=== PATIENT | female | born 1965 | race African-American/Black ===

== ENCOUNTER 2017-03-07 00:40 | Emergency (ER) | payer SELFPAY ==
--- NOTE | 2017-03-07 00:51 | NUR ---
SHE SIGNED IN AND LEAVE, PATIENT LEFT WITHOUT BEING SEEN BY DR. HOLDER. NO FURTHER CARE PROVIDED FOR PATIENT.
== END 2017-03-07 00:57 | disposition left against medical advice (07) ==
LOC: MED 00:40
DX: Z53.21 Procedure and treatment not carried out due to patient leaving prior to being seen by health care provider (principal)